=== PATIENT | female | born 1985 | race African-American/Black ===

== ENCOUNTER 2019-04-17 12:37 | Emergency (ER) | payer SELFPAY ==
--- NOTE | 2019-04-17 13:32 | EDPHYS ---
Physician Documentation [facility] Name: Madison Sunshine Age: 33 yrs Sex: Female : 1985 Arrival Date: 04/17/2019 Time: 12:38 Bed 25 Private MD: ED Physician Pravin Baum HPI: 04/17 13:27 This 33 yrs old Black Female presents to ER via Ambulatory with complaints of chika Dizziness, Blurred Vision, Weakness. 13:27 The patient presents with dizziness. Onset: The symptoms/episode began/occurred just chika prior to arrival. Context: occurred at work. Modifying factors: The symptoms are alleviated by lying down. Associated signs and symptoms: Pertinent positives: nausea. Severity of symptoms: At their worst the symptoms were mild in the emergency department the symptoms are unchanged. Patient's baseline: Neuro: alert and fully oriented. The patient has not experienced similar symptoms in the past. 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 - Social history:: Smoking status: . - Ebola Screening: : Patient denies travel to an Ebola-affected area in the 21 days before illness onset. - Family history:: not pertinent. ROS: 13:27 Constitutional: Negative for fever, chills, and weight loss, Eyes: Negative for injury, chika pain, redness, and discharge, ENT: Negative for injury, pain, and discharge, Neck: Negative for injury, pain, and swelling, Cardiovascular: Negative for chest pain, palpitations, and edema, Respiratory: Negative for shortness of breath, cough, wheezing, and pleuritic chest pain, Abdomen/GI: Negative for abdominal pain, nausea, vomiting, diarrhea, and constipation, Back: Negative for injury and pain, : Negative for injury, bleeding, discharge, and swelling, MS/Extremity: Negative for injury and deformity, Skin: Negative for injury, rash, and discoloration, Psych: Negative for depression, anxiety, suicide ideation, homicidal ideation, and hallucinations, Allergy/Immunology: Negative for hives, rash, and allergies, Endocrine: Negative for neck swelling, polydipsia, polyuria, polyphagia, and marked weight changes, Hematologic/Lymphatic: Negative for swollen nodes, abnormal bleeding, and unusual bruising. 13:27 Neuro: Positive for dizziness. Exam: 13:27 Constitutional: This is a well developed, well nourished patient who is awake, alert, chika and in no acute distress. Head/Face: Normocephalic, atraumatic. Eyes: Pupils equal round and reactive to light, extra-ocular motions intact. Lids and lashes normal. Conjunctiva and sclera are non-icteric and not injected. Cornea within normal limits. Periorbital areas with no swelling, redness, or edema. ENT: Nares patent. No nasal discharge, no septal abnormalities noted. Tympanic membranes are normal and external auditory canals are clear. Oropharynx with no redness, swelling, or masses, exudates, or evidence of obstruction, uvula midline. Mucous membranes moist. Neck: Trachea midline, no thyromegaly or masses palpated, and no cervical lymphadenopathy. Supple, full range of motion without nuchal rigidity, or vertebral point tenderness. No Meningismus. Chest/axilla: Normal chest wall appearance and motion. Nontender with no deformity. No lesions are appreciated. Cardiovascular: Regular rate and rhythm with a normal S1 and S2. No gallops, murmurs, or rubs. Normal PMI, no JVD. No pulse deficits. Respiratory: Lungs have equal breath sounds bilaterally, clear to auscultation and percussion. No rales, rhonchi or wheezes noted. No increased work of breathing, no retractions or nasal flaring. Abdomen/GI: Soft, non-tender, with normal bowel sounds. No distension or tympany. No guarding or rebound. No evidence of tenderness throughout. Back: No spinal tenderness. No costovertebral tenderness. Full range of motion. Female : Normal external genitalia. Skin: Warm, dry with normal turgor. Normal color with no rashes, no lesions, and no evidence of cellulitis. MS/ Extremity: Pulses equal, no cyanosis. Neurovascular intact. Full, normal range of motion. Neuro: Awake and alert, GCS 15, oriented to person, place, time, and situation. Cranial nerves II-XII grossly intact. Motor strength 5/5 in all extremities. Sensory grossly intact. Cerebellar exam normal. Normal gait. Psych: Awake, alert, with orientation to person, place and time. Behavior, mood, and affect are within normal limits. 13:27 Neck: ROM/movement: is normal, no acute changes, Meningeal signs: are not present, Kernig's sign is negative, Brudzinski's sign is negative. Vital Signs: 12:54 BP 149 / 103; Pulse 95; Resp 18; Temp 98.3(O); Pulse Ox 98% ; Weight 108.86 kg (R); tw2 Height 5 ft. 6 in. (167.64 cm); Pain 0/10; 13:56 BP 136 / 65 Supine; Pulse 79; Resp 14; Temp 98.4; Pulse Ox 100% on R/A; ls4 13:59 BP 148 / 74 Standing; Pulse 82; Resp 16; Pulse Ox 99% on R/A; ls4 12:54 Body Mass Index 38.74 (108.86 kg, 167.64 cm) tw2 MDM: 13:02 Patient medically screened. [facility] 13:30 Data reviewed: vital signs, nurses notes. [facility] 04/17 14:07 Order name: Glucose, Ancillary Testing [facility] 04/17 13:27 Order name: PO challenge; Complete Time: 14:06 [facility] 04/17 13:27 Order name: Orthostatics; Complete Time: 14:06 [facility] 04/17 13:30 Order name: Blood Glucose Level; Complete Time: 14:06 [facility] Administered Medications: No medications were administered Point of Care Testing: Blood Glucose: 13:59 Blood Glucose: 79 mg/dL; dh3 Ranges: Critical Glucose Levels:Adult <50 mg/dl or >400 mg/dl <40 mg/dl or >180 mg/dl Disposition: 04/17/19 13:31 Discharged to Home. Impression: Dizziness and giddiness, Heat exhaustion, unspecified, Heat fatigue, transient. - Condition is Stable. - Discharge Instructions: Dizziness, Heat Exhaustion Information, Dizziness, [id number]. - Medication Reconciliation Form, Thank You Letter, Antibiotic Education, Prescription Opioid Use, Work release form form. - Follow up: Private Physician; When: 2 - 3 days; Reason: Recheck today's complaints, Continuance of care, Re-evaluation by your physician. - Problem is new. - Symptoms have improved. Signatures: Pravin Baum MD MD cha Wise, Tara RN RN tw2 Maurizio, Majo, RN RN ls4 Corrections: (The following items were deleted from the chart) 14:13 13:31 04/17/2019 13:31 Discharged to Home. Impression: Dizziness and giddiness; Heat ls4 exhaustion, unspecified; Heat fatigue, transient. Condition is Stable. Forms are Medication Reconciliation Form, Thank You Letter, Antibiotic Education, Prescription Opioid Use. Follow up: Private Physician; When: 2 - 3 days; Reason: Recheck today's complaints, Continuance of care, Re-evaluation by your physician. Problem is new. Symptoms have improved. chika
--- NOTE | 2019-04-17 13:32 | ER ---
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 Transition of care: patient was not received from another setting of care. Onset of symptoms was April 17, 2019. Risk Assessment: Do you want to hurt yourself or someone else? Patient reports no desire to harm self or others. Initial Sepsis Screen: Does the patient meet any 2 criteria? No. Patient's initial sepsis screen is negative. Does the patient have a suspected source of infection? No. Patient's initial sepsis screen is negative. Care prior to arrival: None. 12:54 Method Of Arrival: Ambulatory tw2 12:54 Acuity: KAVYA 3 tw2 Triage Assessment: 12:55 General: Appears in no apparent distress. obese, Behavior is calm, cooperative, tw2 appropriate for age. Pain: Denies pain. 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 - Social history:: Smoking status: . - Ebola Screening: : Patient denies travel to an Ebola-affected area in the 21 days before illness onset. - Family history:: not pertinent. Screenin:19 Abuse screen: Denies threats or abuse. Denies injuries from another. Nutritional ls4 screening: No deficits noted. Tuberculosis screening: No symptoms or risk factors identified. Fall Risk None identified. Assessment: 13:19 General: Appears in no apparent distress. comfortable, Behavior is calm, cooperative. ls4 Neuro: Reports dizziness, since today but now improved. Denies paresthesias numbness. Cardiovascular: No deficits noted. Respiratory: No deficits noted. Musculoskeletal: Circulation, motion, and sensation intact. Capillary refill < 3 seconds, Range of motion: intact in all extremities. Vital Signs: 12:54 BP 149 / 103; Pulse 95; Resp 18; Temp 98.3(O); Pulse Ox 98% ; Weight 108.86 kg (R); tw2 Height 5 ft. 6 in. (167.64 cm); Pain 0/10; 13:56 BP 136 / 65 Supine; Pulse 79; Resp 14; Temp 98.4; Pulse Ox 100% on R/A; ls4 13:59 BP 148 / 74 Standing; Pulse 82; Resp 16; Pulse Ox 99% on R/A; ls4 12:54 Body Mass Index 38.74 (108.86 kg, 167.64 cm) tw2 ED Course: 12:38 Patient arrived in ED. mr 12:54 Triage completed. tw2 12:54 Arm band placed on. tw2 13:02 Pravin Baum MD is Attending Physician. chika 13:12 Majo Steven, RN is Primary Nurse. ls4 13:19 Patient has correct armband on for positive identification. Bed in low position. Call ls4 light in reach. Side rails up X 1. 13:19 No provider procedures requiring assistance completed. Patient did not have IV access ls4 during this emergency room visit. 14:08 Diet: Patient given water. Tolerated well . ls4 14:08 orthostatics complete. ls4 Administered Medications: No medications were administered Point of Care Testing: Blood Glucose: 13:59 Blood Glucose: 79 mg/dL; 3 Ranges: Outcome: 13:19 Condition: good ls4 13:31 Discharge ordered by . chika 14:12 Discharge instructions given to patient. ls4 14:12 Discharged to home ambulatory. ls4 14:12 Discharge instructions given to patient, Instructed on discharge instructions, follow up and referral plans. Demonstrated understanding of instructions, follow-up care, Prescriptions given X 14:13 Patient left the ED. ls4 Signatures: Pravin Baum MD MD cha Rivera, Mary mr Wise, Tara, RN RN 2 Kaylyn Morfin 3 Majo Steven, BERNICE RN ls4
== END 2019-04-17 14:13 | disposition home or self-care (01) ==
LOC: ER 12:37
DX: T67.5XXA Heat exhaustion, unspecified, initial encounter (principal); T67.6XXA Heat fatigue, transient, initial encounter; I10 Essential (primary) hypertension
CPT/HCPCS: 82962; 99282